=== PATIENT | male | born 1975 | race American Indian/Alaskan Native ===

== ENCOUNTER 2020-03-01 17:27 | Outpatient (CLI) | payer SELFPAY ==
[2020-03-01 17:48] LABS: Basophils # 0.1 10^3/uL (0.0-0.1); Basophils % 0.6 %; Eosinophils # 0.1 10^3/uL (0.0-0.8); Eosinophils % 1.7 %; Hematocrit 46.1 % (42.0-52.0); Lymphocytes # 2.1 10^3/uL (0.8-4.8); Lymphocytes % 24.7 %; Mean Corpuscular HGB Conc 32.5 g/dL (30.0-36.0); Mean Corpuscular Hemoglobin 30.1 pg (28.0-34.0); Mean Corpuscular Volume 92.6 fL (80-94); Mean Platelet Volume 10.9 fL (7.4-10.4); Monocytes # 0.6 10^3/uL (0.2-0.9); Neutrophils # 5.55 10^3/uL (1.8-7.7); Neutrophils % 65.8 %; Nucleated Red Blood Cells % 0 %; Platelet Count 269 10^3/cmm (130-400); Red Blood Count 4.98 10^6/uL (4.1-5.3); Red Cell Distribution Width 13.1 % (12.1-15.1); White Blood Count 8.4 10^3/uL (4.0-10.0)
[2020-03-01 18:06] LABS: Alanine Aminotransferase 72 U/L (0-41); Albumin Level 4.7 g/dL (3.5-5.2); Alkaline Phosphatase 90 IU/L (40-130); Anion Gap 18.1 (5-19); Aspartate Amino Transferase 50 U/L (0-40); Blood Urea Nitrogen 18 mg/dL (6-20); Calcium 9.6 mg/dL (8.5-10.5); Carbon Dioxide 25 mmol/L (22-29); Chloride 101 mmol/L (98-107); Cholesterol 177 mg/dL (0-200); Glomerular Filtration Rate 92.5 mL/min (90-130); Glucose 148 mg/dL (65-115); HDL Cholesterol 29 mg/dL (60-100); LDL Cholesterol Calculated 74 mg/dL (50-129); LDL HDL Ratio 2.55 RATIO (0.00-3.22); Osmolality Calculated 289 mOsm/kg (285-295); Potassium 4.1 mmol/L (3.5-5.1); Sodium 140 mmol/L (136-145); Total Bilirubin 0.2 mg/dL (0.15-1.2); Total Protein 7.7 g/dL (6.6-8.7); Triglycerides 369 mg/dL (0-150)
[2020-03-01 19:18] LABS: Estmated Average Glucose 197; Hemoglobin A1C 8.5 % (4.0-6.0)
== END 2020-03-01 17:28 | disposition home or self-care (01) ==
LOC: LAB 17:28
PROVIDERS: Visit Provider General Practice
DX: E78.5 Hyperlipidemia, unspecified (principal)
CPT/HCPCS: 80053; 80061; 83036; 85025

== ENCOUNTER 2020-03-16 12:38 | Emergency (ER) | payer SELFPAY ==
[2020-03-16 12:47] VITALS: BP 170/119; PULSE 87; RESP 18; TEMP 36.4; O2SAT 99; BMI 34.3
--- NOTE | 2020-03-16 12:53 | ED_ITS ---
HPI - Extremity Problem General: Chief complaint: Extremity Injury, Lower Stated complaint: left knee pain Time Seen by Provider: 03/16/20 12:44 Source: patient Mode of arrival: wheelchair Limitations: no limitations History of Present Illness: HPI Narrative: Patient is a 44-year-old male who presents to ED today for evaluation of left knee pain. Patient tells me he initially injured the knee a few days ago however was still able to be ambulatory. He states he stepped down from a step today and immediately noticed pain to his medial knee. Patient tells me he has no longer able to bear weight. He denies any previous injuries or surgeries to the knee. MD Complaint: joint pain Onset (ago): day(s) Pain Consistency: constant Location: left and lower extremity Radiation: none Relieving factors: immobilization Exacerbating factors: range of motion, weight bearing, walking and palpation Associated symptoms: Reports no associated symptoms Review of Systems Musc: Reports: joint pain (L knee) Neuro: Denies: numbness in extremities or sensory changes Physical Exam Const: COMMON NORMALS: no acute distress, patient oriented x3, no limitations and alert NUTRITIONAL APPEARANCE: obese Extremity: GENERAL: Yes normal exam except as noted OTHER: pt with TTP to medial joint line of L knee; he maintains ROM; pain with valgus stress; no obvious effusion noted; NV intact Neuro: COMMON NORMALS: patient oriented x3, moves all extremities, no focal motor deficits and no sensory deficits noted SENSORIUM/ORIENTATION: Yes alert GAIT: Yes Unable to assess gait Skin: NARRATIVE SKIN EXAM: normal skin appearance Course Vital Signs: Vital signs: Vital Signs Temperature 97.6 F 03/16/20 12:47 Pulse Rate 87 03/16/20 12:47 Respiratory Rate 18 03/16/20 12:47 Blood Pressure 170/119 03/16/20 12:47 Pulse Oximetry 99 03/16/20 12:47 MDM - Extremity (Nontraumatic) MDM Narrative: Medical decision making narrative: will splint/ABENA wrap; recommend followup with PCP in 1-2 weeks for persisting pain Imaging Data^: XR L knee: Radiologist's impression: [address] [address] XRay Report Signed Patient: Akbar Miller #: [id number] : 1975Acct#:[id number] Age/Sex: 44 / MADM Date: 03/16/20 Loc: ERRoom/Bed: Attending Dr: Ordering Provider/Ordering MD: Dotty Obregon Date of Service: 03/16/20 Procedure(s): XR knee LT 3V* [id number] Accession Number(s): [id number] Report Number: [id number] PROCEDURE INFORMATION: Exam: XR Left Knee Exam date and time: 03/16/2020 1:32 PM Age: 44 years old Clinical indication: Injury or trauma; Injury history: Not specified; Initial encounter; Blunt trauma; Knee; Left; Additional info: Injury/pain TECHNIQUE: Imaging protocol: XR Left knee. Views: 3 views. COMPARISON: No relevant prior studies available. FINDINGS: Bones/joints: Negative for acute bony abnormality Soft tissues: Normal. XR/XR knee LT 3V* [id number] IMPRESSION: No acute findings. Dictated By:Edmond Campbell Signed By:Kusum Campbell Date/Time:03/16/201408 DD/ 1401 Discharge Plan Discharge Patient Disposition: Home Clinical Impression: MCL sprain of left knee Qualifiers: Encounter type: initial encounter Qualified Code(s): S83.412A - Sprain of medial collateral ligament of left knee, initial encounter Condition: Stable Discharge Orders: Discharge Order (Routine); Ordered 03/16/20 Ordered By: Dotty Obregon Patient Instructions: Knee Sprain (ED), RICE Therapy (ED) Coding Level of Care Code ED Service Line Coordinator for Chg Fwd Exam Expanded Problem Focused
[2020-03-16 14:48] VITALS: BP 145/87; PULSE 84; RESP 17; O2SAT 94
== END 2020-03-16 14:22 | disposition home or self-care (01) ==
PROVIDERS: Emergency Provider Physician Assistant
DX: S83.412A Sprain of medial collateral ligament of left knee, initial encounter (principal); X58.XXXA Exposure to other specified factors, initial encounter
CPT/HCPCS: 12345; 73562; 99281; 99283; E0114

== ENCOUNTER 2021-06-04 20:29 | Emergency (ER) | payer MEDICAID, SELFPAY ==
--- NOTE | 2021-06-04 20:34 | ECG_ITS ---
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 Measurements Intervals [place] Rate: 103 P: 37 MS: 144 QRS: -10 QRSD: 105 T: 46 QT: 348 QTc: 456 Interpretive Statements SINUS TACHYCARDIA VOLTAGE CRITERIA FOR LVH [MEETS CRITERIA IN ONE OF: R(aVL), S(V1), R(V5), R(V5/V6)+S(V1)] Compared to ECG 11/08/2017 09:31:56 Sinus rhythm no longer present Electronically Signed On 06-04-2021 23:27:49 CDT by Kurtis Rahman M.D. [email or web address]
--- NOTE | 2021-06-04 20:34 | XRR_ITS ---
PROCEDURE INFORMATION: Exam: XR Chest Exam date and time: 06/04/2021 8:34 PM Age: 45 years old Clinical indication: Chest wall pain; Additional info: Cp TECHNIQUE: Imaging protocol: XR of the chest. Views: 1 view. Total images: 1 COMPARISON: CR Chest 1 [place] [id number] 11/08/2017 9:35 AM FINDINGS: Lungs: No visible active interstitial or alveolar airspace disease. Pleural spaces: Unremarkable. No pleural effusion. No pneumothorax. Heart/Mediastinum: Cardiac structures and configuration within normal limits. Bones/joints: Unremarkable. Other findings: Obesity. XR/XR chest 1V portable [id number] IMPRESSION: Nonacute. Radiation Dose CTDIVOL = (mGy): DLP = (mGy-cm)
[2021-06-04 20:41] VITALS: BP 160/106; PULSE 106; RESP 18; TEMP 36.9; O2SAT 96; BMI 47.2
[2021-06-04 21:12] LABS: Basophils % 0.4 %; Eosinophils # 0.1 10^3/uL (0.0-0.8); Hematocrit 50.7 % (42.0-52.0); Lymphocytes # 2.2 10^3/uL (0.8-4.8); Lymphocytes % 21.7 %; Mean Corpuscular HGB Conc 33.5 g/dL (30.0-36.0); Mean Corpuscular Hemoglobin 29.7 pg (28.0-34.0); Mean Corpuscular Volume 88.6 fl (80-94); Mean Platelet Volume 10.7 fL (7.4-10.4); Monocytes # 0.7 10^3/uL (0.2-0.9); Monocytes % 7.3 %; Neutrophils # 6.88 10^3/uL (1.8-7.7); Neutrophils % 69.2 %; Nucleated Red Blood Cells % 0 %; Platelet Count 264 10^3/cmm (130-400); Red Blood Count 5.72 10^6/uL (4.1-5.3); Red Cell Distribution Width 12.7 % (12.1-15.1); White Blood Count 9.9 10^3/uL (4.0-10.0)
[2021-06-04 21:30] LABS: Troponin(5th) Baseline 12 ng/L (0-15)
[2021-06-04 21:33] LABS: Alanine Aminotransferase 114 U/L (0-41); Albumin Level 4.5 g/dL (3.5-5.2); Alkaline Phosphatase 92 IU/L (40-130); Anion Gap 19.1 (5-19); Aspartate Amino Transferase 74 U/L (0-40); Blood Urea Nitrogen 17 mg/dL (6-20); Calcium 9.9 mg/dL (8.5-10.5); Carbon Dioxide 28 mmol/L (22-29); Chloride 99 mmol/L (98-107); Globulin 3.1 g/dL (1.3-4.6); Glomerular Filtration Rate 105.5 mL/min (90-130); Glucose 203 mg/dL (65-115); Lipase 31 U/L (13-60); Osmolality Calculated 301 mOsm/kg (285-295); Potassium 4.1 mmol/L (3.5-5.1); Sodium 142 mmol/L (136-145); Total Bilirubin 0.4 mg/dL (0.15-1.2); Total Protein 7.6 g/dL (6.6-8.7)
--- NOTE | 2021-06-04 22:14 | ED_ITS ---
HPI - Chest Pain General: Chief Complaint: Chest Pain Stated Complaint: Chest Pain N\V Time Seen by Provider: 06/04/21 22:13 Source: patient Mode of arrival: ambulatory Limitations: no limitations History of Present Illness: HPI narrative: 45-year-old male who states that having intermittent chest pain over the last 2 days. States pain is been sharp in nature in the center of his chest. He denies any dyspnea has had some nausea and vomiting. Has history of diabetes along with high blood pressure has a family history of heart disease as well. Denies any worsening improving factors. Denies any shortness of breath. Associated symptoms: Reports nausea and vomiting; Deny dyspnea or fever(s) Review of Systems Const: Denies: fever(s), chills, body aches or change in appetite Eyes: Denies: blurry vision or eye discomfort ENMT: Denies: throat pain or dental pain Card: Reports: chest pain Resp: Denies: dyspnea GI: Reports: nausea and vomiting : Denies: dysuria Musc: Denies: neck pain or back pain Skin/Breast: Denies: rash Neuro: Denies: headache(s) Psych: Denies: depression Parish/Lymph: Denies: easy bruising All/Imm: Denies: urticaria Physical Exam Const: COMMON NORMALS: no acute distress, patient oriented x3 and healthy a ppearing HENMT: COMMON NORMALS: normocephalic and atraumatic HEAD & SCALP: normocephalic and atraumatic Eye: COMMON NORMALS: Equal, round and reactive pupils present and EOMs intact bilaterally PUPIL: Yes Equal, round and reactive pupils present Neck/C-Spine: COMMON NORMALS: full ROM and supple Chest: COMMONS NORMALS: normal inspection of the chest and normal palpation of entire chest wall Resp: COMMON NORMALS: normal respiratory effort, No retractions, No use of accessory muscles and clear to auscultation bilaterally AUSCULTATION: clear to auscultation bilaterally Cardio: COMMON NORMALS: regular rate, regular rhythm and No murmurs present (Cardio) RATE: regular rate RHYTHM: regular rhythm GI: COMMON NORMALS: Normal to inspection, nondistended, normoactive bowel sounds present, Soft to palpation, non-tender and no masses PALPATION: Yes Soft to palpation Extremity: COMMON NORMALS: normal to inspection and full ROM Neuro: COMMON NORMALS: patient oriented x3, moves all extremities and no focal motor deficits Psych: COMMON NORMALS: mental status grossly normal, Normal thought process present and cooperative THOUGHT PROCESS: Normal thought process present Skin: COMMON NORMALS: no rashes or lesions noted and no wounds GENERAL SKIN EXAM: no rashes or lesions noted Course Vital Signs: Vital signs: Vital Signs Temperature 98.5 F 06/04/21 20:41 Pulse Rate 102 H 06/04/21 22:26 Respiratory Rate 15 06/05/21 00:03 Blood Pressure 167/113 06/04/21 22:26 Pulse Oximetry 97 06/04/21 22:26 MDM - Chest Pain MDM Narrative: Medical decision making narrative: Patient presents for chest pains atypical in nature he feels much improved after Zofran initial repeat troponins are negative CT chest is normal as well he is stable for discharge he is to follow-up with PCP and return if worsening is no signs of acute coronary syndrome. Lab Data: Labs: Lab Results 06/04/21 06/04/21 06/04/21 20:51 20:51 20:51 WBC 9.9 10^3/uL 10^3/ uL (4.0-10.0) RBC 5.72 10^6/uL H 10 ^6/uL (4.1-5.3) Hgb 17.0 g/dL H g/dL (11.7-16.6) Hct 50.7 % % (42.0-52.0) MCV 88.6 fl fl (80-94) MCH 29.7 pg pg (28.0-34.0) MCHC 33.5 g/dL g/dL (30.0-36.0) RDW 12.7 % % (12.1-15.1) Plt Count 264 10^3/cmm 10^3 /cmm (130-400) MPV 10.7 fL H fL (7.4-10.4) Neut % (Auto) 69.2 % % Lymph % (Auto) 21.7 % % [place] % (Auto) 7.3 % % Eos % (Auto) 1.0 % % Baso % (Auto) 0.4 % % Neut # (Auto) 6.88 10^3/uL 10^3 /uL (1.8-7.7) Lymph # (Auto) 2.2 10^3/uL 10^3/ uL (0.8-4.8) [place] # (Auto) 0.7 10^3/uL 10^3/ uL (0.2-0.9) Eos # (Auto) 0.1 10^3/uL 10^3/ uL (0.0-0.8) Baso # (Auto) 0.0 10^3/uL 10^3/ uL (0.0-0.1) Nucleated RBC % (a uto) 0 % % Nucleated RBCs # 0.0 /100WBC /100W BC D-Dimer Sodium 142 mmol/L mmol/L (136-145) Potassium 4.1 mmol/L mmol/L (3.5-5.1) Chloride 99 mmol/L mmol/L (98-107) Carbon Dioxide 28 mmol/L mmol/L (22-29) Anion Gap 19.1 H (5-19) BUN 17 mg/dL mg/dL (6-20) Creatinine 0.8 mg/dL mg/dL (0.7-1.2) GFR Calculation 105.5 mL/min mL/m in (90-130) Glucose 203 mg/dL H mg/dL (65-115) Calculated Osmolal ity 301 mOsm/kg H mOs m/kg (285-295) Calcium 9.9 mg/dL mg/dL (8.5-10.5) Total Bilirubin 0.4 mg/dL mg/dL (0.15-1.2) AST 74 U/L H U/L (0-40) ALT 114 U/L H U/L (0-41) Alkaline Phosphata se 92 IU/L IU/L (40-130) Troponin T Baselin e 12 ng/L ng/L (0-15) Troponin T 120 Min jamul Delta Troponin T Troponin T Hi Sens 6Hr Troponin T Hi Sens 6Hr Delta Total Protein 7.6 g/dL g/dL (6.6-8.7) Albumin 4.5 g/dL g/dL (3.5-5.2) Globulin 3.1 g/dL g/dL (1.3-4.6) Lipase 31 U/L U/L (13-60) 06/04/21 06/04/21 06/05/21 20:51 22:43 00:02 WBC RBC Hgb Hct MCV MCH MCHC RDW Plt Count MPV Neut % (Auto) Lymph % (Auto) [place] % (Auto) Eos % (Auto) Baso % (Auto) Neut # (Auto) Lymph # (Auto) [place] # (Auto) Eos # (Auto) Baso # (Auto) Nucleated RBC % (a uto) Nucleated RBCs # D-Dimer 2.52 ug/mIFEU H u g/mIFEU (0-0.59) Sodium Potassium Chloride Carbon Dioxide Anion Gap BUN Creatinine GFR Calculation Glucose Calculated Osmolal ity Calcium Total Bilirubin AST ALT Alkaline Phosphata se Troponin T Baselin e Troponin T 120 Min jamul 11.06 ng/L ng/L (0-15) Delta Troponin T -0.94 ABS# L ABS# (0-10) Troponin T Hi Sens 6Hr 11.51 ng/L ng/L (0-15) Troponin T Hi Sens 6Hr Delta -0.49 ng/L L ng/L (0-12) Total Protein Albumin Globulin Lipase Imaging Data^: CXR: Radiologist's impression: [address] [address] XRay Report Signed Patient: Kendell Miller Unit #: [id number] : 1975 Age/Sex: 45 / M ADM Date: 06/04/21 Loc: ER Room/Bed: Attending Dr: Ordering Provider/Ordering MD: Raman Subramanian MD Date of Service: 06/04/21 Procedure(s): XR chest 1V portable [id number] Accession Number(s): [id number] Report Number: [id number] PROCEDURE INFORMATION: Exam: XR Chest Exam date and time: 06/04/2021 8:34 PM Age: 45 years old Clinical indication: Chest wall pain; Additional info: Cp TECHNIQUE: Imaging protocol: XR of the chest. Views: 1 view. Total images: 1 COMPARISON: CR Chest 1 [place] [id number] 11/08/2017 9:35 AM FINDINGS: Lungs: No visible active interstitial or alveolar airspace disease. Pleural spaces: Unremarkable. No pleural effusion. No pneumothorax. Heart/Mediastinum: Cardiac structures and configuration within normal limits. Bones/joints: Unremarkable. Other findings: Obesity. XR/XR chest 1V portable [id number] IMPRESSION: Nonacute. Radiation Dose CTDIVOL = (mGy): DLP = (mGy-cm) Dictated By: Clem Rucker Signed By: Clem Rucker Signed Date/Time: 06/04/212133 DD/ 33 CT Chest: Radiologist's impression: [facility] [address] [place] [address] CT Scan Report Signed Patient: Kendell Miller Unit #: [id number] : 1975 Age/Sex: 45 / M ADM Date: 06/04/21 Loc: ER Room/Bed: Attending Dr: Ordering Provider/Ordering MD: Raman Subramanian MD Date of Service: 06/04/21 Procedure(s): CT angio chest PE protcl [id number] Accession Number(s): [id number] Report Number: [id number] PROCEDURE INFORMATION: Exam: CTA Chest With Contrast Exam date and time: 06/04/2021 11:02 PM Age: 45 years old Clinical indication: Pain and abnormal findings; Abnormal diagnostic tests; Elevated d-dimer; Shortness of breath; Sternal or substernal pain; Prior surgery; Surgery type: Gb; Additional info: SOB TECHNIQUE: Imaging protocol: Computed tomographic angiography of the chest with contrast. 3D rendering (Not supervised by radiologist): MIP and/or 3D reconstructed images were created by the technologist. Radiation optimization: All CT scans at this facility use at least one of these dose optimization techniques: automated exposure control; mA and/or kV adjustment per patient size (includes targeted exams where dose is matched to clinical indication); or iterative reconstruction. Contrast material: OMNI 350; Contrast volume: 58 ml; Contrast route: INTRAVENOUS (IV); COMPARISON: CR (CHEST, ) 06/04/2021 9:05 PM RADIATION DOSE METRICS: Total DLP (mGy-cm): 806.76 FINDINGS: Pulmonary arteries: Normal. No pulmonary emboli. Aorta: Unremarkable. No aortic aneurysm. No aortic dissection. Lungs: Atelectasis at the lung bases. The lungs are otherwise clear. Pleural spaces: Unremarkable. No pneumothorax. No pleural effusion. Heart: Unremarkable. No cardiomegaly. No pericardial effusion. Lymph nodes: Unremarkable. No enlarged lymph nodes. Bones/joints: Unremarkable. No acute fracture. Soft tissues: There is bilateral gynecomastia. CT/CT angio chest PE protcl [id number] IMPRESSION: No acute cardiopulmonary abnormality. Gynecomastia. Radiation Dose CTDIVOL = (mGy): DLP = 806.76 (mGy-cm) Dictated By: Erik Merino MD Signed By: Erik Merino MD Signed Date/Time: 06/05/21 0033 DD/ 2302 EKG Data^: EKG 1: Attestation: I personally reviewed and interpreted this EKG as follows: EKG interpretation date: 06/04/21 EKG interpretation time: 21:04 Interpretation: nsr hr [address] elevation qrs 85 qtc 378 EKG 2: Attestation: I personally reviewed and interpreted this EKG as follows: EKG interpretation date: 06/04/21 EKG interpretation time: 23:26 Interpretation: sinus tach hr [address] or t wave abnormalities qrs 105 qtc 407 Discharge Plan Discharge Patient Disposition: Home Clinical Impression: Chest pain Qualifiers: Chest pain type: unspecified Qualified Code(s): R07.9 - Chest pain, unspecified Condition: Stable Prescriptions: New ondansetron 4 mg tablet,disintegrating 4 mg PO Q6H PRN (Reason: nausea and vomiting) Qty: 14 RF: 0 Discharge Orders: Discharge ED (Routine); Ordered 06/05/21 Ordered By: Raman Subramanian Referrals: [facility], [Primary Care Provider] - Discharge Diet: Advance as tolerated Discharge Activity: Use walker/crutches as instructed Patient Instructions: Chest Pain (ED) Coding Level of Care Code ED Hr Payroll Coordinator for Chg Fwd Exam Comprehensive
[2021-06-04 22:26] VITALS: BP 167/113; PULSE 102; RESP 15; O2SAT 97
--- NOTE | 2021-06-04 22:34 | ECG_ITS ---
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 Measurements Intervals [place] Rate: 106 P: 46 IA: 155 QRS: -9 QRSD: 105 T: 10 QT: 343 QTc: 455 Interpretive Statements SINUS TACHYCARDIA VOLTAGE CRITERIA FOR LVH [MEETS CRITERIA IN ONE OF: R(aVL), S(V1), R(V5), R(V5/V6)+S(V1)] Compared to ECG 11/08/2017 09:31:56 Sinus rhythm no longer present Electronically Signed On 06-06-2021 1:26:43 CDT by Mariana Clayton M.D. [id number]
[2021-06-04 22:59] LABS: D Dimer 2.52 ug/mIFEU (0-0.59)
--- NOTE | 2021-06-04 23:02 | CTR_ITS ---
PROCEDURE INFORMATION: Exam: CTA Chest With Contrast Exam date and time: 06/04/2021 11:02 PM Age: 45 years old Clinical indication: Pain and abnormal findings; Abnormal diagnostic tests; Elevated d-dimer; Shortness of breath; Sternal or substernal pain; Prior surgery; Surgery type: Gb; Additional info: SOB TECHNIQUE: Imaging protocol: Computed tomographic angiography of the chest with contrast. 3D rendering (Not supervised by radiologist): MIP and/or 3D reconstructed images were created by the technologist. Radiation optimization: All CT scans at this facility use at least one of these dose optimization techniques: automated exposure control; mA and/or kV adjustment per patient size (includes targeted exams where dose is matched to clinical indication); or iterative reconstruction. Contrast material: OMNI 350; Contrast volume: 58 ml; Contrast route: INTRAVENOUS (IV); COMPARISON: CR (CHEST, ) 06/04/2021 9:05 PM RADIATION DOSE METRICS: Total DLP (mGy-cm): 806.76 FINDINGS: Pulmonary arteries: Normal. No pulmonary emboli. Aorta: Unremarkable. No aortic aneurysm. No aortic dissection. Lungs: Atelectasis at the lung bases. The lungs are otherwise clear. Pleural spaces: Unremarkable. No pneumothorax. No pleural effusion. Heart: Unremarkable. No cardiomegaly. No pericardial effusion. Lymph nodes: Unremarkable. No enlarged lymph nodes. Bones/joints: Unremarkable. No acute fracture. Soft tissues: There is bilateral gynecomastia. CT/CT angio chest PE protcl [id number] IMPRESSION: No acute cardiopulmonary abnormality. Gynecomastia. Radiation Dose CTDIVOL = (mGy): DLP = 806.76 (mGy-cm)
[2021-06-04 23:12] LABS: Troponin 5 2HR 11.06 ng/L (0-15)
[2021-06-04 23:14] LABS: Troponin 5 2HR Delta -0.94 ABS# (0-10)
[2021-06-05 00:03] VITALS: RESP 15
[2021-06-05] MEDS: morphine 4 mg/mL SDV 1 mL IVP (00:03)
[2021-06-05] MEDS: sodium chloride 0.9% 1,000 ML 999 ML IV (00:03)
[2021-06-05] MEDS: ondansetron 2 mg/ML SDV 2 mL 4 MG IVP (00:03)
[2021-06-05] MEDS: iohexol 350 mg/mL 100 mL Btl IV (00:09)
[2021-06-05 00:34] LABS: Troponin 5 6HR 11.51 ng/L (0-15)
[2021-06-05 00:36] LABS: Troponin 5 6HR Delta -0.49 ng/L (0-12)
[2021-06-05 00:47] VITALS: BP 167/113; PULSE 94; RESP 16; TEMP 36.9; O2SAT 97
== END 2021-06-05 00:48 | disposition home or self-care (01) ==
PROVIDERS: Emergency Provider Emergency Medicine
DX: R07.9 Chest pain, unspecified (principal); R11.2 Nausea with vomiting, unspecified
CPT/HCPCS: 36415; 71045; 71275; 80053; 83690; 84484; 85025; 85378; 93005; 96361; 96374; 96375; 99284; J2270; J2405; J7030; Q9967

== ENCOUNTER 2022-03-24 12:50 | Emergency (ER) | payer MEDICAID, SELFPAY ==
[2022-03-24 13:06] VITALS: BP 148/94; PULSE 99; RESP 18; TEMP 36.8; O2SAT 96; BMI 35.4
--- NOTE | 2022-03-24 13:07 | XR_ITS ---
WS: [id number] Exam: XR knee LT 1-2V [id number] Date/Time of Exam: 03/24/2022 1:23 PM Reason For Exam: knee pain Comparison 03/16/2020. No fracture or dislocation. Joint effusion is noted. There appears to be a loose joint body in the ce ntral joint. Mild degenerative thinning of the medial joint compartment. XR/XR knee LT 1-2V 13140 IMPRESSION: 1. No fracture or dislocation. 2. Joint effusion. Probable loose joint body. 3. Moderate degenerative narrowing of the medial joint compartment.
--- NOTE | 2022-03-24 14:46 | ED_ITS ---
HPI - Extremity Injury (Lower) General: Chief Complaint: Extremity Injury, Lower Stated Complaint: knee is in pain Time Seen by Provider: 03/24/22 14:27 Source: patient Mode of arrival: ambulatory Limitations: no limitations History of Present Illness: Patient is a 46-year-old male who presents to ED today for evaluation of a left knee injury that he sustained several days ago after stepping in a hole while mowing the yard and hearing a pop . Patient has continued to be ambulatory on the joint however he has noticed some swelling over the last couple of days. Patient states he has had several previous injuries where he will tweak the knee and will notice swelling to it. He has no other injuries or complaints at this time. complaint: knee injury Onset (ago): day(s) Injury: Left: knee Place: home Severity: moderate Relieving factors: immobilization Exacerbating factors: weight bearing, movement and palpation Context: other (twisting) Associated symptoms: Reports no associated symptoms Other symptoms: none Review of Systems Const: Denies: fever(s), chills or body aches Musc: Reports: joint pain (L knee) and joint swelling (L knee); Denies: neck pain, back pain, extremity pain, extremity swelling, joint redness, joint warmth or limited range of motion Neuro: Denies: numbness in extremities, weakness in extremities or sensory changes Physical Exam Const: COMMON NORMALS: no acute distress, patient oriented x3, no limitations and alert NUTRITIONAL APPEARANCE: overweight ORIENTATION/CONSCIOUSNESS: Yes awake, Yes oriented to person, Yes oriented to place and Yes oriented to time Extremity: COMMON NORMALS: full ROM, capillary refill normal, no clubbing, cyanosis or edema and no calf tenderness GENERAL: Yes normal exam except as noted LEFT LOWER EXTREMITY: Yes knee joint (joint effusion/swelling noted) Left knee: Yes ROM (normal or as much as swelling allowed for; tenderness not out of proportion) and Yes neurovascular exam (normal) Neuro: COMMON NORMALS: patient oriented x3, moves all extremities, no focal motor deficits and no sensory deficits noted SENSORIUM/ORIENTATION: Yes alert, Yes oriented to person, Yes oriented to place and Yes oriented to time Course Vital Signs: Vital signs: Vital Signs Temperature 98.2 F 03/24/22 13:06 Pulse Rate 99 03/24/22 13:06 Respiratory Rate 18 03/24/22 13:06 Blood Pressure 148/94 03/24/22 13:06 Pulse Oximetry 96 03/24/22 13:06 Oxygen Delivery Me thod 03/24/22 13:06 MDM - Extremity Injury (Lower) Medical Decision Making XR negative for fx. Effusion present. He has knee sleeve at home. Recommend RICE therapy and follow up with PCP in 1-2 weeks for re-evaluation. Return to ED precautions given. Lab Data Radiology Impressions Knee X-Ray 03/24/22 13:07 IMPRESSION: 1. No fracture or dislocation. 2. Joint effusion. Probable loose joint body. 3. Moderate degenerative narrowing of the medial joint compartment. Discharge Plan Discharge Patient Disposition: Home Clinical Impression: Injury of left knee Qualifiers: Encounter type: initial encounter Qualified Code(s): S89.92XA - Unspecified injury of left lower leg, initial encounter Condition: Stable Prescriptions: New diclofenac sodium 50 mg tablet,delayed release (DR/EC) 50 mg PO Q12H PRN (Reason: pain) Qty: 20 0RF Medrol (Ankit) 4 mg tablets,dose pack See Rx Instructions .ROUTE .COMPLEX Qty: 21 0RF Rx Instructions: orally per package directions No Action ondansetron 4 mg tablet,disintegrating 4 mg PO Q6H PRN (Reason: nausea and vomiting) Qty: 14 0RF Discharge Orders: Discharge ED (Routine); Ordered 03/24/22 Ordered By: Dotty Obregon Referrals: [facility], [Primary Care Provider] - Coding Level of Care Code ED Solid Waste Division Supervisor for Renae Lau
== END 2022-03-24 15:11 | disposition home or self-care (01) ==
PROVIDERS: Emergency Provider Physician Assistant
DX: S89.92XA Unspecified injury of left lower leg, initial encounter (principal); X50.1XXA Overexertion from prolonged static or awkward postures, initial encounter
CPT/HCPCS: 73560; 99283